=== PATIENT | female | born 1965 | race Caucasian/White ===

== ENCOUNTER 2017-11-09 21:05 | Emergency (ER) | payer MEDICARE, OTHER, SELFPAY ==
[2017-11-09 21:07] VITALS: BP 86/51; PULSE 78; RESP 16; TEMP 36.6; O2SAT 92; BMI 30.4
--- NOTE | 2017-11-09 21:19 | CT_ITS ---
CT abdomen pelvis wo con CLINICAL INDICATION: Generalized abdominal pain ITS.REASON: pain ORDERING PHYSICIAN: Mika Chisholm MD PATIENT AGE: 52 years COMPARISON: 01/14/2014 TECHNIQUE: Axial images obtained with sagittal and coronal reformats. PROCEDURE: Oral Contrast: None IV Contrast: None . FINDINGS: Atelectatic changes are present in the lung bases scattered calcified and noncalcified nodules in the lower lobes. A 5 mm noncalcified nodule present in the inferior aspect of the right upper lobe not readily apparent on the previous exam but may not been imaged. Multiple small calcified nodules are present in the liver and spleen. Pancreatic atrophy. The adrenal glands and kidneys are unremarkable. No intestinal obstruction or free air. No evidence of appendicitis or diverticulitis. There is mild thickening versus nondistention of the splenic flexure, descending colon, and sigmoid colon. Artifact is present from a right femoral lidia. There is severe wedging of L3 with retropulsion of the posterior superior aspect of L3 x 8 mm. This has developed since 01/14/2014 and since a previous lumbar spine film of 02/11/2015. There is resultant canal stenosis. IMPRESSION: 1. Basilar pulmonary nodules on the right measuring up to 5 mm. Recommend 6 month follow-up 2. Thickening of the descending and sigmoid colon which may be due to nondistention or colitis 3. Age-indeterminate compression fracture of L3 with retropulsion resulting in canal stenosis. MRI may be of further value to determine any degree of neural impingement
[2017-11-09 21:31] LABS: Basophils # 0.1 K/mm3 (0-0.2); Basophils % 0.6 % (0.1-2.0); Eosinophils # 0.7 K/mm3 (0.0-0.4); Eosinophils % 3.3 % (0.1-12.0); Hematocrit 44.6 % (37.0-47.0); Hemoglobin 14.3 g/dL (12.2-16.2); Lymphocytes % 28.2 K/mm3 (10-50); Mean Corpuscular Hemoglobin 30.1 pg (27.0-31.2); Mean Corpuscular Volume 94.1 fl (81-99); Mean Platelet Volume 7.9 fl (7.4-10.4); Monocytes # 1.6 K/mm3 (0.1-1.0); Monocytes % 7.4 % (1.7-9.3); Neutrophils # 12.9 K/mm3 (1.8-7.8); Neutrophils % 60.5 % (37.0-80.0); Platelet Count 514 K/mm3 (142-424); Red Blood Count 4.74 M/mm3 (4.20-5.40); Red Cell Distribution Width 13.1 % (11.5-17.5); White Blood Count 21.3 K/mm3 (4.8-10.8)
[2017-11-09 21:32] LABS: MANUAL DIFFERENTIAL MANUAL DIFFERENTIAL (MANUAL DIFF)
[2017-11-09 22:31] LABS: Eosinophils % 4 % (0-3); Lymphocytes % 26 % (10-50); Monocytes % 2 % (2-9); Neutrophils % 68 % (42-76); Platelet Estimate 1; Stomatocytes 1+; Total Cells Counted 100
[2017-11-09 22:33] LABS: Alanine Aminotransferase 86 U/L (12-78); Albumin Level 3.1 gm/dL (3.4-5.0); Albumin/Globulin Ratio 0.9 (1.1-1.8); Alkaline Phosphatase 162 U/L (46-116); Amylase 18 U/L (25-125); Anion Gap 11.7 mEq/L (5-15); Aspartate Amino Transferase 52 U/L (15-37); Bilirubin,Total 0.3 mg/dL (0.2-1.0); Blood Urea Nitrogen 15 mg/dL (7-18); Calcium 8.3 mg/dL (8.5-10.1); Carbon Dioxide 29 mmol/L (21.0-32.0); Chloride 93 mmol/L (98-107); Creatinine Clearance Estimated 50 mL/min (0-300); Creatinine,Serum 1.64 mg/dL (0.55-1.02); Estimated Glomerular Filt Rate 33 ml/min (>60); GFR (African American) 40 ML/MIN (>60); Globulin 3.5 gm/dl (1.3-3.2); Glucose 201 mg/dL (74-106); Lipase 40 u/L (73-393); Potassium 3.7 mmoL/L (3.5-5.1); Sodium 130 mmol/L (136-145); Total Protein,Serum 6.6 gm/dL (6.4-8.2)
[2017-11-09 22:38] LABS: Microscopic, Urine URINE MICROSCOPIC (MICROSCOPIC)
[2017-11-09 22:39] LABS: Appearance,Urine SL CLOUDY (Clear); Bilirubin,Urine Negative (Negative); Blood, Urine Negative (Negative); Color,Urine YELLOW (Yellow); Glucose,Urine (UA) 3+ (Negative); Ketones,Urine Negative (Negative); Leukocyte Esterase,Urine 1+ (Negative); Nitrate,Urine Negative (Negative); PH,Urine 5.5 (5.0-8.5); Protein,Urine Negative (Negative); Specific Gravity, Urine 1.015 (1.005-1.030); Urobilinogen,Urine 0.2 EU/dl (0.2)
[2017-11-09 22:48] LABS: Bacteria,Urine 2+ /lpf; RBC,Urine Occasional #/hpf (0-3); Squamous Epithelial Cell,Urine TNTC #/hpf (0-5); WBC,Urine 20-50 #/hpf (0-3); Yeast,Urine 1+ /lpf
[2017-11-09 23:16] LABS: Creatine Kinase 41 U/L (26-192); Troponin I < 0.02 ng/ml (0.00-0.06)
[2017-11-09 23:18] LABS: CKMB Relative Index 1.2 U/L (0-4.0); Creatine Kinase MB < 0.5 mg/ml (0.0-3.6)
--- NOTE | 2017-11-09 23:45 | PC.NURSE ---
pt cqme out wanting to talk to dr hutchins, about 2 min later came out saying she wanted iv out she was going home and we needed to make that happen.
[2017-11-09 23:47] VITALS: BP 117/51; PULSE 78; RESP 16; TEMP 37.1; O2SAT 98
--- NOTE | 2017-11-10 00:12 | HMH.EDNVD ---
ED Disposition Clinical Impression: UTI (urinary tract infection) Qualifiers: Urinary tract infection type: site unspecified Hematuria presence: without hematuria Qualified Code(s): N39.0 - Urinary tract infection, site not specified Hypotension Qualifiers: Hypotension type: unspecified hypotension type Qualified Code(s): I95.9 - Hypotension, unspecified Leukocytosis Qualifiers: Leukocytosis type: unspecified Qualified Code(s): D72.829 - Elevated white blood cell count, unspecified Disposition: Left Against Medical Advice Condition on Discharge: Good Instructions: DI for Acute Abdomen Additional Instructions: call pcp about culture results - Critical Care Critical Care Time: No Attestation: On 11/09/17, the high probability of a clinically significant, sudden or life threatening deterioration of the following system(s) required my full and direct attention, intervention and personal management. The time I documented below is in addition to time spent performing reported procedures but includes the following listed in this critical care notation. Medical Decision Making - Medical Records Medical records reviewed: Yes: I reviewed the patient's medical records. Vital Signs: 11/09/17 21:07 Temperature 97.9 F Temperature Source Oral Pulse Rate [Right Radial] 78 Respiratory Rate 16 Blood Pressure [Left Arm] 86/51 Blood Pressure Mean [Left Arm] 62 Blood Pressure Source [Left Arm] Automatic Cuff Blood Pressure Position [Left Arm] Sitting 02 Sat by Pulse Oximetry 92 L Oxygen Delivery Method Room Air - Lab Data Lab results reviewed: Yes: I reviewed the patient's lab results. Lab Results 11/09/17 21:22: WBC 21.3 H*, RBC 4.74, Hgb 14.3, Hct 44.6, MCV 94.1, MCH 30.1, MCHC 32.0, RDW 13.1, Plt Count 514 H, MPV 7.9, Neut % (Auto) 60.5, Lymph % (Auto) 28.2, [place] % (Auto) 7.4, Eos % (Auto) 3.3, Baso % (Auto) 0.6, Neut # (Auto) 12.9 H, Lymph # (Auto) 6.0 H, [place] # (Auto) 1.6 H, Eos # (Auto) 0.7 H, Baso # (Auto) 0.1, Total Counted 100, Neutrophils % (Manual) 68, Lymphocytes % (Manual) 26, Monocytes % (Manual) 2, Eosinophils % (Manual) 4 H, Platelet Estimate 1, Stomatocytes 1+ 11/09/17 22:05: Sodium 130 L, Potassium 3.7, Chloride 93 L, Carbon Dioxide 29, Anion Gap 11.7, BUN 15, Creatinine 1.64 H, Estimated Creat Clear 50, Estimated GFR 33 L, Est GFR ( Amer) 40 L, Glucose 201 H, Calcium 8.3 L, Total Bilirubin 0.3, AST 52 H, ALT 86 H, Alkaline Phosphatase 162 H, Total Protein 6.6, Albumin 3.1 L, Globulin 3.5 H, Albumin/Globulin Ratio 0.9 L, Amylase 18 L, Lipase 40 L 11/09/17 22:24: Total Creatine Kinase 41, CK-MB (CK-2) < 0.5, CK-MB (CK-2) Rel Index 1.2, Troponin I < 0.02 11/09/17 22:35: Urine Color Yellow, Urine Appearance Sl cloudy, Urine pH 5.5, Ur Specific [place] 1.015, Urine Protein Negative, Urine Glucose (UA) 3+, Urine Ketones Negative, Urine Blood Negative, Urine Nitrate Negative, Urine Bilirubin Negative, Urine Urobilinogen 0.2, Ur Leukocyte Esterase 1+ A, Urine RBC Occasional, Urine WBC 20-50, Ur Squamous Epith Cells Tntc, Urine Bacteria 2+, Urine Yeast 1+ Result diagrams: 11/09/17 21:22 11/09/17 22:05 Orders (Tests/Meds): ED MEDICATIONS Discontinued Medications Generic Name Dose Route Start Last Admin Trade Name Freq PRN Reason Stop Dose Admin Sodium Chloride 1,000 mls @ 999 mls/hr 11/09/17 22:15 11/09/17 22:09 Sod Chlor 0.9% 1000ml Bag IV 11/09/17 23:15 999 mls/hr .[id number] JOSE RAFAEL Administration ORDERS Category Date Time Status CT abdomen pelvis wo con Stat Cat Scan 11/09/17 21:19 Taken Lactic Acid Stat Lab 11/09/17 23:14 Ordered Blood Culture Stat Micro 11/09/17 23:14 Ordered Urine Culture Stat Micro 11/09/17 22:35 Received - CT Data CT Scan: Abdomen, Pelvis Time Received: 00:[address] Reviewed: Yes: I have viewed the radiologist's interpretation Preliminary Findings: Abnormal (see report) - Tonio Inquiry Pt receiving controlled substance: No Nausea/Vomi
[2017-11-10 00:15] LABS: Lactic Acid 1.2 mmol/L (0.4-2.0)
--- NOTE | 2017-11-10 00:15 | ED_ITS ---
ED Disposition Clinical Impression: UTI (urinary tract infection) Qualifiers: Urinary tract infection type: site unspecified Hematuria presence: without hematuria Qualified Code(s): N39.0 - Urinary tract infection, site not specified Hypotension Qualifiers: Hypotension type: unspecified hypotension type Qualified Code(s): I95.9 - Hypotension, unspecified Leukocytosis Qualifiers: Leukocytosis type: unspecified Qualified Code(s): D72.829 - Elevated white blood cell count, unspecified Disposition: Left Against Medical Advice Condition on Discharge: Good Instructions: DI for Acute Abdomen Additional Instructions: call pcp about culture results - Critical Care Critical Care Time: No Attestation: On 11/09/17, the high probability of a clinically significant, sudden or life threatening deterioration of the following system(s) required my full and direct attention, intervention and personal management. The time I documented below is in addition to time spent performing reported procedures but includes the following listed in this critical care notation. Medical Decision Making - Medical Records Medical records reviewed: Yes: I reviewed the patient's medical records. Vital Signs: 11/09/17 21:07 Temperature 97.9 F Temperature Source Oral Pulse Rate [Right Radial] 78 Respiratory Rate 16 Blood Pressure [Left Arm] 86/51 Blood Pressure Mean [Left Arm] 62 Blood Pressure Source [Left Arm] Automatic Cuff Blood Pressure Position [Left Arm] Sitting 02 Sat by Pulse Oximetry 92 L Oxygen Delivery Method Room Air - Lab Data Lab results reviewed: Yes: I reviewed the patient's lab results. Lab Results 11/09/17 21:22: WBC 21.3 H*, RBC 4.74, Hgb 14.3, Hct 44.6, MCV 94.1, MCH 30.1, MCHC 32.0, RDW 13.1, Plt Count 514 H, MPV 7.9, Neut % (Auto) 60.5, Lymph % (Auto ) 28.2, [place] % (Auto) 7.4, Eos % (Auto) 3.3, Baso % (Auto) 0.6, Neut # (Auto) 12.9 H, Lymph # (Auto) 6.0 H, [place] # (Auto) 1.6 H, Eos # (Auto) 0.7 H, Baso # ( Auto) 0.1, Total Counted 100, Neutrophils % (Manual) 68, Lymphocytes % (Manual) 26, Monocytes % (Manual) 2, Eosinophils % (Manual) 4 H, Platelet Estimate 1, Stomatocytes 1+ 11/09/17 22:05: Sodium 130 L, Potassium 3.7, Chloride 93 L, Carbon Dioxide 29, Anion Gap 11.7, BUN 15, Creatinine 1.64 H, Estimated Creat Clear 50, Estimated GFR 33 L, Est GFR ( Amer) 40 L, Glucose 201 H, Calcium 8.3 L, Total Bilirubin 0.3, AST 52 H, ALT 86 H, Alkaline Phosphatase 162 H, Total Protein 6.6 , Albumin 3.1 L, Globulin 3.5 H, Albumin/Globulin Ratio 0.9 L, Amylase 18 L, Lipase 40 L 11/09/17 22:24: Total Creatine Kinase 41, CK-MB (CK-2) < 0.5, CK-MB (CK-2) Rel Index 1.2, Troponin I < 0.02 11/09/17 22:35: Urine Color Yellow, Urine Appearance Sl cloudy, Urine pH 5.5, Ur Specific [place] 1.015, Urine Protein Negative, Urine Glucose (UA) 3+, Urine Ketones Negative, Urine Blood Negative, Urine Nitrate Negative, Urine Bilirubin Negative, Urine Urobilinogen 0.2, Ur Leukocyte Esterase 1+ A, Urine RBC Occasional, Urine WBC 20-50, Ur Squamous Epith Cells Tntc, Urine Bacteria 2+, Urine Yeast 1+ Result diagrams: 11/09/17 21:22 11/09/17 22:05 Orders (Tests/Meds): ED MEDICATIONS Discontinued Medications Generic Name Dose Route Start Last Admin Trade Name Freq PRN Reason Stop Dose Admin Sodium Chloride 1,000 mls @ 999 mls/hr 11/09/17 22:15 11/09/17 22:09 Sod Chlor 0.9% 1000ml Bag IV 11/09/17 23:15 999 mls/hr
== END 2017-11-10 00:39 | disposition left against medical advice (07) ==
PROVIDERS: Emergency Provider Emergency Medicine
DX: N39.0 Urinary tract infection, site not specified (principal); I95.9 Hypotension, unspecified; D72.829 Elevated white blood cell count, unspecified; E10.9 Type 1 diabetes mellitus without complications; Z88.0 Allergy status to penicillin; Z88.8 Allergy status to other drugs, medicaments and biological substances; F17.210 Nicotine dependence, cigarettes, uncomplicated
CPT/HCPCS: 74176; 80053; 81001; 82150; 82550; 82553; 83605; 83690; 84484; 85007; 85025; 87040; 87086; 96365; 96366; 99283

== ENCOUNTER → 2017-11-14 08:28 | Outpatient (CLI) | payer MEDICARE, OTHER, SELFPAY ==
--- NOTE | 2017-11-14 08:37 | NM_ITS ---
NM bone 3 phase, NM bone scan whole body Ordering Physician: Steve Downey Patient Age: 52 years: Female HISTORY: ITS.REASON: COMPLICATIONS DUE TO ORTHO DEVICE Pain at right hip, ORIF performed 2 years ago. TECHNIQUE: Initial 3 phase bone scan focus seen on pelvis/hips, was then followed by a total body bone scan Following injection of 26.4 mCi of COMPARISON :Right hip & AP pelvis to 2-5-18 from [facility] . Left ribs from today. CT abdomen pelvis November 2017 [facility] FINDINGS : ========= 3 PHASE BONE SCAN: Initial multi frame FLOW IMAGES show no significant asymmetry. Only question equivocal very very subtle additional activity on posterior views right hip versus left. . IMMEDIATE BLOOD POOL IMAGES again show no prominent asymmetry. Only question some subtle scant greater activity on the posterior views of right greater tuberosity and proximal femur than left.. Unimpressive DELAYED images at 3 hour on at pelvis which included frog-leg views hips bilaterally. These do show slight increased activity at the proximal most right femur on outlining the medullary lidia, of the most evident extending along lateral cortex ultrasound towards the greater trochanter region... The comparison views are very helpful with similar but less pronounced pattern towards the left hip. ======== TOTAL 3 HOUR DELAYED IMAGES Very delayed images of of the entire body of the performed. Again we see the only very slight, subtle increased activity activity about the proximal right femur. I would note that this is only minimal greater activity on postsurgical right versus left and may be in keeping with the spectrum with residual changes from the procedure 2 years ago.. This minimal greater Activity on right, is very slightly greater on posterior views, & at posterior aspect greater trochanter. There is also2. Subtle foci activityNear tip of the medullary lidia: 1 related to the transverse screw with a second subtle focus activity just at or just below the tip of the medullary lidia.. Again the activity is faint, relatively minimal here -Other observations Patient also has very subtle diffuse increased activity is seen along both lateral tibia cortex bilaterally. Likely within spectrum of of the normal or or could reflect venous stasis. U may consider a follow-up CXR with this appearance is well The osseous pelvis otherwise appears intact. . Surprisingly minimal activity L3 level reflecting the severe wedge compression fracture here on a recent CT.. This supports this is more likely an old fracture, but has occurred since February 2015. This vertebral was normal on the 2015 plain film. Most intense focus of activity involving the lateral left third and lateral eighth rib. Of central rib films show subtle cortical thickening from likely healing fracture of the lateral eighth rib t. Vague questionable but likely healing left third rib fracture as well on today's rib series. A October 2014 CT chest multiple old rib fractures which are no longer evident. Diffuse slight increased activity throughout the skull most likely reflecting merely a generous thickness calvarium.. No focal lesions here note: This study was dictated with a voice-recognition system. There may be typographical error is related to such. If they are significant please notify us for corrections IMPRESSION 1. The 3 Phase Bone scan shows faint, only barely appreciable scant greater activity towards the right hip &, right proximal femur the left. Negligible 2. The Total Body Bone Scan, and delayed images also show only subtle scant increased activity at proximal right femur, about the ORIF. This subtle increased activity is very slightly most notable posteriorly, towards greater tuberosity.
--- NOTE | 2017-11-14 09:10 | HMH.ITSHM ---
PRAVASTATIN LISINOPRIL PERCOCET VALIUM ZANOFLEX GABAPENTIN LEVOTHYROXIN NOVOLOG POTASSIUM ZINC CENTRUM SILVER
--- NOTE | 2017-11-14 13:13 | XR_ITS ---
XR ribs LT min 3V w CXR1V Ordering Physician: Steve Downey Patient Age: 52 years: Female HISTORY: ITS.REASON: HOT SPOT ON BONE SCAN LT RIBS TECHNIQUE: Oblique views left ribs along with AP rib views above and below diaphragm. COMPARISON :Bone scan from today. CT chest 2014. CT abdomen November 09 2017 FINDINGS Today's bone scan showed increased activity at the left lateral third rib and lateral eighth rib. Recent CT abdomen 11/09/2017 The patient has multiple old rib fractures which are seen on the chest CT from 2015 Today's study rib series shows a focal area of cortical thickening at the lateral left eighth rib which corresponds with the right area on bone scan. Most compatible with healing fracture. Similar area can be seen in retrospect on recent CT abdomen at the left eighth rib. On one oblique views of vaguely faintly see what appears to be a healing third rib fracture is well. If clinical to visualize at left posterior lateral rib, this is projected over other structures. Otherwise lungs appear clear. Generous size dense Calcified nodes at left juliette and AP window reflect old granulomatous disease. Lungs clear no active disease otherwise. I'm surprisingly the previous fractures seen on 2015 CT chest are barely appreciable and demonstrate no increased activity on today's bone scan IMPRESSION 1. Subtle Findings most compatible with healing at the left third and eighth rib on today's rib series these correlate with the areas of increased activity on today's bone scan 2 . The left third rib fracture appears to be most recent in nature. It difficult to visualize 3. Lungs clear no active disease otherwise
== END ==
PROVIDERS: PCP Family Medicine; Visit Provider Orthopaedic Surgery
DX: T84.84XA Pain due to internal orthopedic prosthetic devices, implants and grafts, initial encounter (principal)
CPT/HCPCS: 71101; 78306; 78315; A9503

== ENCOUNTER → 2018-04-19 07:48 | Outpatient (CLI) | payer MEDICARE, OTHER, SELFPAY ==
--- NOTE | 2018-04-19 07:55 | MR_ITS ---
MR cervical spine wo con, MR 3-d myelogram/MRCP HISTORY: Neck pain,LT shoulder and arm pain. ITS.REASON: NECK PAIN, CERVICALGIA ORDERING PHYSICIAN: Gladys Scott PATIENT AGE: 53 years TECHNIQUE: Standard multiplanar multiecho sequences are performed without contrast. 3-D MIP and myelographic images are also rendered and reviewed FINDINGS: There is normal alignment. The craniocervical junction has an unremarkable appearance. C2-C3: Unremarkable. C3-C4: There is mild concentric bulging disc along with hypertrophy of the posterior longitudinal ligament and minimal uncovertebral hypertrophy with narrowing of the canal at 9 mm along with bilateral foraminal narrowing. C4-C5: Bulging disc with hypertrophy of the posterior longitudinal ligament along with uncovertebral hypertrophy. There is resultant canal stenosis of 8 mm along with bilateral foraminal narrowing left greater than right. There is minimal flattening of the cord anteriorly. C5-C6: Bulging disc with mild posterior longitudinal ligament hypertrophy. The disc is slightly eccentric toward the left with canal narrowing at 10 mm.. C6-C7: Mild degenerative disc disease with bulging disc slightly eccentric to the left with mild left lateral recess narrowing. C7-T1: Unremarkable. IMPRESSION: 1. Bulging disc with posterior longitudinal ligament hypertrophy at C3-C4, C4-C5, and C5-C6 resulting narrowing of the canal greater at C4-C5 with mild flattening of the cord at this level and with bilateral foraminal narrowing from uncovertebral hypertrophy 2. Bulging discs C6-C7 slightly eccentric to the left with mild left lateral recess narrowing. 3. No disc herniation.
--- NOTE | 2018-04-19 08:55 | XR_ITS ---
EXAM: XR thoracic spine 3V HISTORY: ITS.REASON: THORAICIC PAIN Comparison: None FINDINGS: Normal alignment. No fracture or dislocation. No lytic or blastic change. There is minimal spurring of the endplates in the mid and lower thoracic spine. No acute fracture or dislocation. No lytic or blastic change. There is severe wedge compression changes involving the L3 vertebral body with retropulsion of the superior inferior aspect as seen on previous CT scan of 11/09/2017. IMPRESSION: 1. Mild degenerative change thoracic spine with no acute thoracic spine findings. 2. Chronic wedge compression changes with retropulsion at L3
--- NOTE | 2018-04-19 08:58 | XR_ITS ---
XR DEXA axial skeleton HISTORY: ITS.REASON: OSTEOPOROSIS ORDERING PHYSICIAN: Gladys Scott PATIENT AGE: 53 years COMPARISON: None FINDINGS: The BMD measured at the Total femoral neck is 0.679 g/cm squared with a T score of -2.6 . This is considered Osteoporotic according to the World Health Organization criteria. Fracture risk is High. Treatment is advised. The L1 L4 density hasn't T score -1.6. IMPRESSION: Osteoporosis with high fracture risk. Treatment suggested. Recommend follow-up exam April 2019
== END ==
PROVIDERS: PCP Nurse Practitioner Family; Visit Provider Nurse Practitioner Family
DX: M54.2 Cervicalgia (principal); M81.0 Age-related osteoporosis without current pathological fracture
CPT/HCPCS: 72072; 72141; 76376; 77080